=== PATIENT | female | born 1990 | race Caucasian/White ===

== ENCOUNTER 2017-10-24 02:50 | Inpatient (IN) | payer OTHER ==
[2017-10-24] MEDS ORDERED: MIDAZOLAM HCL 2 MG/2 ML INJ IV PRN (04:10)
[2017-10-24] MEDS ORDERED: MEPERIDINE HCL 25 MG/0.5 ML IV PRN (04:10)
[2017-10-24] MEDS ORDERED: METHYLERGONOVINE 0.2MG/ML AMP IM PRN (04:10)
[2017-10-24] MEDS ORDERED: PROMETHAZINE 25 MG/ML VIAL IM PRN (04:10)
[2017-10-24] MEDS ORDERED: CARBOPROST TROME 250 MCG/ML IM PRN (04:10)
[2017-10-24] MEDS ORDERED: Ringers Lactate 1,000 ML IV PRN (04:10)
[2017-10-24] MEDS ORDERED: PENICILLIN 5 MU in NA CHLORIDE 0.9% 100 ML IV ONE (04:10)
[2017-10-24] MEDS ORDERED: BUTORPHANOL 1 MG/ML INJ IV PRN (04:10)
[2017-10-24] MEDS ORDERED: Ringers Lactate 1,000 ML IV SCH (05:00)
[2017-10-24] MEDS ORDERED: OXYTOCIN/LR 20 UNIT/1,000 ML BAG IV SCH ×2 (05:00→11:00)
[2017-10-24 05:15] VITALS: BMI 36.8
[2017-10-24 05:23] LABS: RPR Titer ND
[2017-10-24 05:27] LABS: Absolute Lymphocytes (CBC) 1.3 K/uL (0.7-4.9); Absolute Monocytes 0.8 K/uL (0.1-1.3); Absolute Neutrophil 6.2 K/uL (1.8-8.0); Basophils % 0.5 % (0-1.3); Eosinophils % 1.4 % (0-4.4); Hematocrit 28.3 % (36.0-45.0); Lymphocytes % 15.6 % (15.3-44.8); MCH 27.3 pg (27.0-35.0); MCV 82.4 fL (80-100); MPV 10.7 fL (7.6-11.3); Monocytes % 9.8 % (3.3-12.3); RBC Red Blood Cell Count 3.44 M/uL (3.86-4.86)
[2017-10-24 05:38] LABS: Urine Appearance CLOUDY; Urine Bilirubin NEGATIVE (NEG); Urine Blood NEGATIVE (NEG); Urine Color YELLOW; Urine Glucose NEGATIVE (NEG); Urine Protein NEGATIVE (NEG); Urine Specific Gravity 1.025 (1.005-1.030); Urine Urobilinogen 0.2 mg/dL (0.2-1.0)
[2017-10-24 05:52] LABS: Urine Microscopic Reflex ORDER UMIC
[2017-10-24 06:12] LABS: Urine Bacteria >50 /HPF (<20); Urine Culture Reflex Order REFLEXED; Urine Mucus LIGHT /HPF (NONE SEEN); Urine RBC NONE SEEN /HPF (NONE SEEN)
[2017-10-24 06:13] LABS: Calcium Oxalate Crystals- Ur FEW (NONE SEEN)
[2017-10-24] MEDS ORDERED: LIDOCAINE 1% 20 ML MDV ONE (08:32)
[2017-10-24] MEDS ORDERED: PENICILLIN 2.5 MU in NA CHLORIDE 0.9% 100 ML IV SCH (09:00)
[2017-10-24] MEDS ORDERED: ACETAMINOPHEN 500 MG TAB PO PRN (10:36)
[2017-10-24] MEDS ORDERED: BISACODYL 10 MG RECTAL SUPP RECT PRN (10:36)
[2017-10-24] MEDS ORDERED: DOCUSATE NA/SENNA CONC 1 TAB PO PRN (10:36)
[2017-10-24] MEDS ORDERED: DIPHENHYDRAMINE 25 MG TAB/CAP PO PRN (10:36)
[2017-10-24] MEDS ORDERED: Oxycodone HCl/Acetaminophen 1 TAB TAB PO PRN ×2 (10:36)
--- NOTE | 2017-10-24 15:11 | PREOPHP ---
Date of Admission: 10/24/2017 A 27-year-old, 4, para 2, AB1, at 39 weeks today, 2.5 to 3 cm, 60% effaced, vertex, -1 statio n. Kasia regularly. FHTs normal, reactive. Rupture of membranes, clear fluid. She is receiv ing penicillin for strep positive status. She said, as a child, she had a rash from Augmentin, but s he was taking amoxicillin first part of this without problems and his received penicillin t hus far without problems. Full labor talk given. The patient is anticipating natural childbirth. A nticipate more rapid progress once she gets to about 5-6 cm. SHELL/GRACIELA Voice ID: [id number]
[2017-10-24] MEDS: IBUPROFEN 200 MG TAB PO PRN (17:56)
--- NOTE | 2017-10-24 20:55 | OP ---
Surgeon: Nicola Jacome MD A 27-year-old, 4, para 2, AB1, 39 weeks , 2.5 to 3 cm on admission. Rupture of membr anes, clear fluid. Went into an active labor pattern. After reaching 5 cm, went rapidly to complete . Had 2 doses of penicillin during the labor because of beta strep positive status. Short second st age of 10 minutes or less. Spontaneous vaginal delivery of a 7 pounds 5 ounce male infant, Apgars 9 and 9. Nuchal cord x2. Small first-degree laceration on left side of the introitus, local infiltrat ion, running-locked stitch of 2-0 chromic 3 to 4 stitches, 1 [id number] stitch at left side of t he introitus at the posterior fourchette. Schultze delivery of the placenta, which was inspected and noted to be intact and normal. Less than 300 cc blood loss. The patient tolerated all procedures w ell. Final Diagnoses: 1.Term intrauterine at 39 weeks. 2.Vaginal delivery. 3.Penicillin prophylaxis. 4.Nuchal cord x2. SHELL/GRACIELA Voice ID: [id number] Report ID: [id number]
[2017-10-24 22:54] LABS: RPR (Rapid Plasma Reagin) NON-REACT (NON-REACT)
[2017-10-25] MEDS: IBUPROFEN 200 MG TAB PO PRN ×2 (09:50)
[2017-10-25 11:25] VITALS: BP 88/52; TEMP 97.3
[2017-10-26 03:47] LABS: HBsAG Nonreactive (Nonreactive)
--- NOTE | 2017-10-26 05:43 | DS ---
Date of Discharge: 10/25/2017 A 27-year-old, 4, para 2, at 39 weeks gestation, delivered a 7 pounds 5 ounce male , Ap gars 9 and 9. Nuchal cord x2. Two small first-degree lacerations, 1 requiring 3-4 stitches, the oth er 1 a single [id number] stitch. Schultze delivery of placenta, which inspected and noted to be intact and normal. Less than 300 cc blood loss. Penicillin prophylaxis during the labor x2. Postp artum, afebrile, ambulating and voiding. Lochia is normal. Will be dismissed this morning to report back to my office in 6 weeks for followup, to report any temperature elevation of 100 degrees or gre ater, severe pain, heavy bleeding, or any other type of abnormalities. Dismissed with tramadol for a nalgesia, although she may decide to take Motrin instead. She has had her Tdap immunization. She charles s no complaints or problems this morning. Final Diagnoses: 1.Term intrauterine at 39 weeks. 2.Vaginal delivery. 3.Penicillin prophylaxis. 4.Nuchal cord x2. SHELL/GRACIELA Voice ID: [id number] Report ID: [id number]
== END 2017-10-25 13:55 | disposition home or self-care (01) | DRG 775 ==
LOC: 2ND-WC 04:06
PROVIDERS: ADMIT Specialist; ATTEND Specialist
PROC: 10907ZC Drainage of Amniotic Fluid, Therapeutic from Products of Conception, Via Natural or Artificial Opening (ICD-10-PCS; principal; 2017-10-24)
PROC: 10E0XZZ Delivery of Products of Conception, External Approach (ICD-10-PCS; 2017-10-24)
PROC: 0HQ9XZZ Repair Perineum Skin, External Approach (ICD-10-PCS; 2017-10-24)
DX: O70.0 First degree perineal laceration during delivery (principal); O69.81X0 Labor and delivery complicated by cord around neck, without compression, not applicable or unspecified; O99.824 Streptococcus B carrier state complicating childbirth; Z3A.39 39 weeks gestation of pregnancy; Z37.0 Single live birth; Z23 Encounter for immunization
CPT/HCPCS: 36415; 81003; 81015; 85025; 86592; 86901; 87086; 87088; 87340; J2175; J2210; J2250; J2590